=== PATIENT | female | born 1990 | race Caucasian/White ===

== ENCOUNTER 2016-08-16 15:22 | Emergency (ER) | payer OTHER ==
[2016-08-16 15:30] VITALS: BP 97/69; PULSE 97; RESP 16; TEMP 97.5; O2SAT 96
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
== END 2016-08-16 16:29 | disposition home or self-care (01) ==
DX: S01.81XA Laceration without foreign body of other part of head, initial encounter (principal); F17.200 Nicotine dependence, unspecified, uncomplicated; W50.3XXA Accidental bite by another person, initial encounter